=== PATIENT | female | born 1980 | race Caucasian/White ===

== ENCOUNTER 2017-08-07 16:51 | Inpatient (IN) | payer MEDICAID ==
[~2017-08-07] VITALS: Ht 142.2 cm; Wt 64.0 kg
[~2017-08-07 16:51] MED LIST: PREN1TAB17 PO
--- NOTE | 2017-08-07 16:55 | NSTRPT ---
NST Information Datetime Report Generated by CPN: 08/07/2017 16:55 Datetime: 07/30/2017 08:30 NST Information EGA: 34.2 Test Number: 2 Time on Monitor: 07/30/2017 08:39 Time off Monitor: 07/30/2017 09:03 NST Duration (Min): 24 Reason for NST: Low SRINIVAS Test and Monitor Explained: Monitor Explained; Test Explained; Verbalized Understanding Pulse: 74 Resp: 17 SBP: 118 DBP: 55 Test Evaluation NST Interventions: Reposition Patient Patient States Movement: Present Contraction Frequency: none FHR Baseline : 135 Variability: Moderate 6-25bpm Accelerations: 15X15 Decelerations: None FHR Category: Category I NST Results: Reactive Comments: Pt to U/S, LOKESH 11.4cm, cephalic Electronically Signed By E-Signature: with User ID: [id number] Datetime: 07/23/2017 08:36 NST Information EGA: 33.2 NST Duration (Min): 29
--- NOTE | 2017-08-07 18:26 | RADRPT ---
PROCEDURE: US OB. CLINICAL INDICATION: Low LOKESH , pain TECHNIQUE: Transabdominal views of the pelvis are available for review. COMPARISON: No prior studies are available for comparison. FINDINGS: There is a single intrauterine gestation in a vertex position. The heart rate is noted at 131 bpm. The placenta is posterior. The LOKESH measures 7.5 cm. RPTAT: AA IMPRESSION: Slightly decreased LOKESH. .Chavez Hendrix MD, MD Date Time Electronically viewed and signed by .Chavez Hendrix MD, MD on 08/07/2017 18:26 .S/
[2017-08-07 18:52] LABS: ADD UMIC YES; UR ASCORBIC ACID NEGATIVE (NEGATIVE); UR BILIRUBIN (Dip) NEGATIVE (NEGATIVE); UR BLOOD (Dip) 2+ mg/dL (NEGATIVE); UR CLARITY SLIGHTLY CLOUDY (CLEAR); UR COLOR YELLOW (YELLOW); UR GLUCOSE (Dip) NEGATIVE (NEGATIVE); UR KETONES (Dip) NEGATIVE (NEGATIVE); UR LEUKOCYTE ESTERASE (Dip) 2+ Leu/ul (NEGATIVE); UR NITRITE (Dip) NEGATIVE (NEGATIVE); UR RBC 24 /HPF (0-5); UR SPECIFIC GRAVITY (Dip) 1.012 (1.003-1.030); UR SQUAMOUS EPITHELIAL CELL FEW /HPF (FEW); UR TOTAL PROTEIN (Dip) NEGATIVE (NEGATIVE); UR UROBILINOGEN (Dip) NEGATIVE (NEGATIVE)
--- NOTE | 2017-08-07 19:06 | HP ---
Date/Time of Note Date/Time of Note DATE: 08/07/17 TIME: 19:02 OB - History Hx of Present Chief Complaint: leakage of fluid Estimated Due Date: Sep 08, 2017 : 3 Para: 2 Spontaneous : 0 Therapeutic : 0 Care: Good Care Ultrasounds: Normal mid trimester US Obstetrical Complications: None Medical Complications: None Past Family/Social History * Past Medical, Surgical, Family and Obstetric Histories reviewed from chart. GBS Status: Unknown OB Admission Exam Physical Exam HEENT: WNL Heart: Rhythm Normal Lungs: Clear, Equal Abdomen: WNL Extremities: Normal Reflexes: Normal Cervical Dilatation: None Effacement: 25% Station: -2 Membranes: Ruptured Amniotic Fluid: Clear Heart Rate: 130's Accelerations: Accelerations Present Decelerations: No Decelerations Varibility: Moderate OB Assessment/Plan Reason for admission: rupture of membranes Plan: Other Other plan: Im betamethasone IV ampicillin JASON CONDON MD Aug 07, 2017 19:06
[2017-08-07] MEDS ORDERED: LACTATED RINGER'S 1,000 ML IV SCH (19:23)
[2017-08-07] MEDS ORDERED: AMPICILLIN 2 GM/NS (PMX) 100 ML IV ONE (19:30)
[2017-08-07] MEDS ORDERED: ACETAMINOPHEN 325 MG TAB PO PRN (19:30)
[2017-08-07 19:47] VITALS: BP 104/58; PULSE 82; RESP 18
[2017-08-07] MEDS: BETAMET NA PHOS/AC(6 MG/ML) 5ML INJ IM SCH (20:15)
[2017-08-07 20:22] LABS: BASOPHILS % 0.3 % (0.0-2.0); EOSINOPHILS # 0.2 10^3/ul (0.0-0.5); EOSINOPHILS % 1.1 % (0.0-7.0); HEMATOCRIT 34.7 % (37.0-47.0); LYMPHOCYTES # 2.4 10^3/ul (0.8-2.9); LYMPHOCYTES % 15.3 % (15.0-51.0); MEAN CORPUSCULAR HEMOGLOBIN 29.7 pg (29.0-33.0); MEAN CORPUSCULAR HGB CONC 34.6 g/dl (32.0-37.0); MEAN CORPUSCULAR VOLUME 85.9 fl (82.0-101.0); MEAN PLATELET VOLUME 9.8 fl (7.4-10.4); MONOCYTES % 6.4 % (0.0-11.0); NEUTROPHIL # 11.7 10^3/ul (1.6-7.5); NEUTROPHILS % 76.3 % (39.0-77.0); PLATELET COUNT 272 10^3/UL (140-415); RED BLOOD COUNT 4.04 10^6/ul (4.20-5.40); RED CELL DISTRIBUTION WIDTH 13.6 % (11.5-14.5); WHITE BLOOD COUNT 15.4 10^3/ul (4.8-10.8)
[2017-08-07 20:23] VITALS: Ht 142.2 cm; Wt 64.0 kg
[2017-08-07 20:33] LABS: INR 0.93; PARTIAL THROMBOPLASTIN TIME 28.9 Sec (25.0-35.0); PROTIME 12.6 Sec (11.9-14.9)
[2017-08-07] MEDS: DOCUSATE SODIUM 100 MG CAP PO SCH (21:00)
[2017-08-07] MEDS ORDERED: MAGNESIUM SULFATE 20 GM/500 ML 500 ML IV ONE (22:17)
[2017-08-07] MEDS ORDERED: MAGNESIUM SULFATE 4 GM/100 ML 100 ML ONE (22:17)
[2017-08-07] MEDS ORDERED: MAGNESIUM SULFATE 4 GM/100 ML 100 ML IV SCH (22:30)
[2017-08-07] MEDS ORDERED: CA GLUCONATE (GM) 10% 10ML INJ IV PRN (22:30)
[2017-08-07] MEDS: LACTATED RINGER'S 1,000 ML IV SCH (23:13)
[2017-08-07] MEDS: MAGNESIUM SULFATE 20 GM/500 ML 500 ML IV SCH (23:13)
[2017-08-08] MEDS: AMPICILLIN 1 GM/NS (PMX) 50 ML IV SCH ×6 (00:01→20:54)
[2017-08-08] MEDS: LACTATED RINGER'S 1,000 ML IV SCH ×2 (06:48→20:53)
[2017-08-08] MEDS: PRENATAL VITAMIN PO SCH (07:49)
[2017-08-08] MEDS: DOCUSATE SODIUM 100 MG CAP PO SCH (07:49)
[2017-08-08] MEDS: MAGNESIUM SULFATE 20 GM/500 ML 500 ML IV SCH ×2 (09:03→18:12)
--- NOTE | 2017-08-08 16:26 | QN ---
Documentation Comment August 08, 2017 Hospital consult This patient is 37 years old 3 para 2 with estimated date of confinement of September 08, 2017 which makes her 35 weeks and 4 days today. She came yesterday due to apparently premature rupture of membranes around 1530 in the afternoon. Her ROM plus test came back positive Her LOKESH was 7.5. The fetus in breech presentation. She has a history of 2 previous delivery by section also requested to have surgical sterilization. Mag sulfate started for her and was given Betamethasone yesterday And we will give another dose today On examination today she is fairly Stable , Afebrile abdomen is soft no much or contraction heart tone is normal. Laboratory Tests Test 08/07/17 17:00 08/07/17 18:30 08/07/17 20:05 08/08/17 01:07 Urine Color YELLOW Urine Clarity SLIGHTLY CLOUDY Urine pH 6.0 Urine Specific [place] 1.012 Urine Ketones NEGATIVEmg/dL Urine Nitrite NEGATIVEmg/dL Urine Bilirubin NEGATIVEmg/dL Urine Urobilinogen NEGATIVEmg/dL Urine Leukocyte Esterase 2+Nicole/ul Urine Microscopic RBC 24/HPF Urine Microscopic WBC 18/HPF Urine Squamous Epithelial Cells FEW/HPF Urine Hemoglobin 2+mg/dL Urine Glucose NEGATIVEmg/dL Urine Total Protein NEGATIVEmg/dl Membranes Rupture POSITIVE White Blood Count 15.410^3/ul Red Blood Count 4.0410^6/ul Hemoglobin 12.0g/dl Hematocrit 34.7% Mean Corpuscular Volume 85.9fl Mean Corpuscular Hemoglobin 29.7pg Mean Corpuscular Hemoglobin Concent 34.6g/dl Red Cell Distribution Width 13.6% Platelet Count 18474^3/UL Mean Platelet Volume 9.8fl Neutrophils % 76.3% Lymphocytes % 15.3% Monocytes % 6.4% Eosinophils % 1.1% Basophils % 0.3% Nucleated Red Blood Cells % 0.0/100WBC Neutrophils # 11.710^3/ul Lymphocytes # 2.410^3/ul Monocytes # 1.010^3/ul Eosinophils # 0.210^3/ul Basophils # 0.010^3/ul Nucleated Red Blood Cells # 0.010^3/ul Prothrombin Time 12.6Sec Prothrombin Time Ratio 1.0 INR International Normalized Ratio 0.93 Activated Partial Thromboplast Time 28.9Sec Magnesium Level 4.8mg/dl Test 08/08/17 05:16 08/08/17 12:15 Magnesium Level 5.5mg/dl 5.9mg/dl Current Medications Medications (Trade) Dose Ordered Sig/Vero Route PRN Reason Start Time Stop Time Status Last Admin Dose Admin Lactated Ringer's (Lr) 1,000 ml @ 125 mls/hr Q8H IV 08/07/17 19:23 08/08/17 06:47 DC 08/07/17 20:16 Betamethasone Acet/Betameth SodPhos 12 mg 12 mg Q24H IM 08/07/17 19:30 08/08/17 19:31 08/07/17 20:15 Ampicillin 100 ml @ 100 mls/hr ONCE ONCE IV 08/07/17 19:30 08/07/17 20:29 DC 08/07/17 20:15 Ampicillin (Ampicillin 1 Gm/ NS (Pmx)) 50 ml @ 100 mls/hr Q4H IV 08/07/17 23:30 08/08/17 12:06 Prenat Multivit/ [place]/Iron/Folic Ac () 1 tab DAILY PO 08/08/17 09:00 Docusate Sodium (Colace) 100 mg BID PO 08/07/17 21:00 Acetaminophen 650 mg 650 mg Q4H PRN PO PAIN AND OR ELEVATED TEMP 08/07/17 19:30 Lactated Ringer's 1,000 ml @ 75 mls/hr [id number] IV 08/07/17 22:10 08/08/17 06:48 Magnesium Sulfate 100 ml @ 200 mls/hr ONCE IV 08/07/17 22:30 08/07/17 22:59 DC 08/07/17 22:40 Magnesium Sulfate (Magnesium Sulfate 20 Gm/500 ml) 500 ml @ 50 mls/hr Q10H IV 08/07/17 23:00 08/08/17 09:03 Calcium Gluconate 1 gm 1 gm ONCE PRN IV FOR MAGNESIUM TOXICITY 08/07/17 22:30 Magnesium Sulfate 100 ml @ ud STK-MED ONCE .ROUTE 08/07/17 22:17 08/07/17 22:18 DC Magnesium Sulfate (Magnesium Sulfate 20 Gm/500 ml) 500 ml @ ud STK-MED ONCE IV 08/07/17 22:17 08/07/17 22:18 DC As I mentioned her last dose of betamethasone will be given at 1130 tonight I did a nitrogen test mostly from the wetness around the vulva and is again positive She says she is very hungry and due to lack of contraction will give her food to be n.p.o. after midnight To be ready for possible section tomorrow. End of dictation ALEX FAITH MD Aug 08, 2017 16:26
[2017-08-08] MEDS ORDERED: BETAMET NA PHOS/AC(6 MG/ML) 5ML INJ IM SCH (20:50)
[2017-08-09] MEDS: AMPICILLIN 1 GM/NS (PMX) 50 ML IV SCH ×5 (01:21→19:30)
[2017-08-09] MEDS: BETAMET NA PHOS/AC(6 MG/ML) 5ML INJ IM SCH (03:57)
[2017-08-09] MEDS: DOCUSATE SODIUM 100 MG CAP PO SCH ×2 (03:57→09:00)
[2017-08-09] MEDS: MAGNESIUM SULFATE 20 GM/500 ML 500 ML IV SCH ×2 (04:20→12:31)
[2017-08-09] MEDS ORDERED: OXYTOCIN 30 UNITS/LR 500 ML BAG IV ONE (07:00)
[2017-08-09] MEDS: PRENATAL VITAMIN PO SCH (09:00)
[2017-08-09] MEDS: LACTATED RINGER'S 1,000 ML IV SCH (11:55)
[2017-08-09] MEDS ORDERED: CEFAZOLIN 2 GM/50 ML (PMX) 50 ML IVPB ONE ×2 (14:37→15:00)
[2017-08-09] MEDS ORDERED: morphine SULFATE/PF (10 MG/10 ML) INJ ONE (15:35)
[2017-08-09] MEDS ORDERED: PHENYLephrine (100 MCG/ML) 5ML SYG ONE ×5 (15:51→17:09)
[2017-08-09] MEDS ORDERED: FENTAnyl 50 MCG/ML VIAL ONE ×3 (16:19→17:07)
--- NOTE | 2017-08-09 17:32 | QN ---
Documentation Comment Patient is wiht SROM. Patient is s/p a course of betamethasone. Patient is for repeat c/s and BTL. Risks, benefits and alternatives were explained to the patient who stated she understood and gave informed consent for the procedures. JASON CONDON MD Aug 09, 2017 17:32
--- NOTE | 2017-08-09 17:42 | OPPN ---
Date/Time of Note Date/Time of Note DATE: 08/09/17 TIME: 17:36 Operative Report Planned Procedure Procedure date Aug 09, 2017 Procedure(s) Repeat c/s with BTL Lysis of adhesions Performed by Jason Condon MD Client Reporting Associate Dr Maloney Anesthesiologist: LANEY VARGAS Pre-procedure diagnosis 35 weeks and 5 days SROM Previous c/s x2 Voluntary sterilization Anesthesia Type: spinal Post-Procedure Post-procedure diagnosis Same Dense pelvic adhesions Findings 8 and 9 Estimated Blood Loss: 500 - 600 mls (500 ml) Specimen(s) placenta, right and left Fallopian tubes Grafts/Implant(s) none Complication(s) none JASON CONDON MD Aug 09, 2017 17:41
[2017-08-09] MEDS ORDERED: OXYTOCIN 30 UNITS/LR 500 ML IV ONE (17:48)
[2017-08-09] MEDS ORDERED: KETOROLAC 30 MG INJ IV PRN (18:00)
[2017-08-09] MEDS ORDERED: NALOXONE (0.4 MG/ML) INJ IV PRN (18:00)
[2017-08-09] MEDS ORDERED: HYDROmorphONE 0.5 MG/0.5 ML SYG IV PRN ×2 (18:00)
[2017-08-09] MEDS ORDERED: HYDROmorphONE (0.2 MG/ML) 10ML SYG IV PRN ×2 (18:00)
[2017-08-09] MEDS ORDERED: FENTAnyl 50 MCG/ML VIAL IV PRN ×3 (18:00)
[2017-08-09] MEDS ORDERED: OXYTOCIN 30 UNITS/LR 500 ML IV SCH (18:00)
[2017-08-09] MEDS ORDERED: ONDANSETRON 4 MG INJ IV PRN ×2 (18:00)
[2017-08-09] MEDS ORDERED: DIPHENHYDRAMINE 50 MG INJ IV PRN ×2 (18:00)
[2017-08-09] MEDS ORDERED: METOCLOPRAMIDE 10 MG INJ IV PRN (18:00)
--- NOTE | 2017-08-09 18:03 | QN ---
Documentation Comment Patient is off magnesium sulfate and denies feeling any contractions. Afebrile VSS Abdomen soft Strip Category I JASON CONDON MD Aug 09, 2017 18:03
--- NOTE | 2017-08-09 18:04 | DS ---
Date/Time of Note Date/Time of Note DATE: 08/09/17 TIME: 18:03 Obstetrical Discharge Record Final Diagnosis Final Diagnosis: not delivered Other Final Diagnosis Threatened labor Complications Tocolytics: Magnesium Sulfate Rupture of Membranes: No Condition on Discharge Physical Assessment Voiding: Yes Bowel Movement: Yes Calf Tenderness: No Patient Condition: Stable JASON CONDON MD Aug 09, 2017 18:04
--- NOTE | 2017-08-09 19:08 | OPR ---
DATE OF OPERATION: 08/09/2017 PREOPERATIVE DIAGNOSES: at 35 weeks and 5 days with spontaneous rupture of membra lisbet, previous section x2, voluntary sterilization. POSTOPERATIVE DIAGNOSES: at 35 weeks and 5 days with spontaneous rupture of membr anes, previous section x2, voluntary sterilization, and dense pelvic adhesions. OPERATION PERFORMED: Repeat section and bilateral tubal ligation and lysis of adhesions. SURGEON: Jason Matthew MD CARE CENTER MANAGER: Hakan Maloney MD ANESTHESIA: Spinal. ANESTHESIOLOGIST: Дмитрий Gaitan MD. PROCEDURE: The patient was taken to the operating room and placed on the operating table. After alejandra ccessful spinal anesthesia was given, the patient was placed in supine position. The area was prepa red and draped in the usual sterile fashion. Spinal anesthesia was tested and was satisfactory. Us ing a scalpel, Pfannenstiel incision was made about 2 fingerbreadths above the symphysis pubis. The incision was carried to the fascia. The fascia was incised and extended bilaterally with [place] scis sors. Two Kochers were used to separate the fascia from the muscle. The muscle was dissected in mi dline down to peritoneum. The peritoneum was secured with 2 Kellys and incised with Metzenbaum scis sors. Upon entering the peritoneal cavity, there were dense pelvic adhesions involving anterior asp ect of the uterus. Sharp and blunt lysis of adhesions was performed in order to access the lower se gment of the uterus with close attention to the bladder and bowel. Using a scalpel, a small transve rse incision was made on the lower segment of the uterus. Upon entering the uterine cavity, bandage scissors were inserted to extend the incision bilaterally, curved up. Baby was delivered from righ t sacral anterior position after internal version from transverse lie. After suctioning clear of am niotic fluid, the baby was handed off to the neonatology team in attendance. Apgars were 8 and 9. The placenta was delivered without difficulty. The uterus was closed with #1 Monocryl continuous lo cked using 0 chromic and 0 PDS, [id number] were placed on small bleeders. In order to access the fallopian tubes, further lysis of adhesions was performed. Both ovaries and tubes appeared to b e normal. The right fallopian tube was grasped with a [place] clamp. Using 0 plain suture ligature , a 5 cm segment of the right fallopian tube was doubly ligated. Using Metzenbaum scissors, a porti on of the right fallopian tube above the ligated area was excised and sent to pathology. Same proce dure was repeated on the left fallopian tube. After assuring hemostasis, the fascia was closed with #1 Vicryl continuous in 2 segments. The skin was closed with case. ESTIMATED BLOOD LOSS: 500 mL. COUNTS: All counts were correct. Dictated By: JASON MATTHEW MD GD/NTS Conf#: [id number] DID#: [id number] CC: HAKAN MALONEY MD;*EndCC*
[2017-08-09 20:00] VITALS: BP 97/53; PULSE 65; RESP 18
[2017-08-09] MEDS ORDERED: CARBOPROST 250 MCG INJ IM PRN (20:00)
[2017-08-09] MEDS ORDERED: LANOLIN 7 GM TUBE TOP PRN (20:00)
[2017-08-09] MEDS ORDERED: OXYTOCIN 30 UNITS/LR 500 ML IV PRN (20:00)
[2017-08-09] MEDS ORDERED: MISOPROSTOL 200 MCG TAB PR PRN (20:00)
[2017-08-09] MEDS ORDERED: METHYLERGONOVINE 0.2 MG INJ IM PRN (20:00)
[2017-08-09] MEDS: SENNA/DOCUSATE NA (8.6MG/50MG) TAB PO SCH (21:24)
[2017-08-09] MEDS: OXYTOCIN 30 UNITS/LR 500 ML IV SCH (23:58)
[2017-08-10] VITALS: BP 91/53; PULSE 65; RESP 18
[2017-08-10 04:00] VITALS: BP 92/55; PULSE 67; RESP 20
[2017-08-10 06:47] LABS: BASOPHILS % 0.1 % (0.0-2.0); HEMATOCRIT 28.4 % (37.0-47.0); HEMOGLOBIN 9.6 g/dl (12.0-16.0); LYMPHOCYTES # 1.6 10^3/ul (0.8-2.9); LYMPHOCYTES % 12.4 % (15.0-51.0); MEAN CORPUSCULAR HEMOGLOBIN 29.5 pg (29.0-33.0); MEAN CORPUSCULAR HGB CONC 33.8 g/dl (32.0-37.0); MEAN CORPUSCULAR VOLUME 87.4 fl (82.0-101.0); MEAN PLATELET VOLUME 10.3 fl (7.4-10.4); MONOCYTE # 1.4 10^3/ul (0.3-0.9); MONOCYTES % 11.2 % (0.0-11.0); NEUTROPHIL # 9.6 10^3/ul (1.6-7.5); NEUTROPHILS % 75.7 % (39.0-77.0); PLATELET COUNT 221 10^3/UL (140-415); RED BLOOD COUNT 3.25 10^6/ul (4.20-5.40); RED CELL DISTRIBUTION WIDTH 14.3 % (11.5-14.5); WHITE BLOOD COUNT 12.6 10^3/ul (4.8-10.8)
[2017-08-10 08:45] VITALS: BP 119/66; PULSE 64; RESP 18
[2017-08-10] MEDS: SENNA/DOCUSATE NA (8.6MG/50MG) TAB PO SCH ×2 (08:58→21:00)
[2017-08-10] MEDS: KETOROLAC 30 MG INJ IV PRN ×2 (08:58→15:26)
[2017-08-10] MEDS: LACTATED RINGER'S 1,000 ML IV SCH ×3 (08:58→20:35)
--- NOTE | 2017-08-10 18:34 | QN ---
Documentation Comment No complaint Afebrile VSS Abdomen soft ND POD #1 Stable Ambulate Advance diet Fe supplement JASON CONDON MD Aug 10, 2017 18:34
[2017-08-10] MEDS: OXYCODONE/ACETAMINOPHEN (5/325) TAB PO PRN (19:25)
[2017-08-10 20:20] VITALS: BP 97/54; PULSE 81; RESP 18
[2017-08-10] MEDS: OXYTOCIN 30 UNITS/LR 500 ML IV SCH (20:35)
[2017-08-10] MEDS: FERROUS SULFATE (EC) 325 MG TAB PO SCH (21:49)
[2017-08-10] MEDS: IBUPROFEN 800 MG TAB PO SCH (21:49)
[2017-08-11] MEDS: LACTATED RINGER'S 1,000 ML IV SCH (03:51)
[2017-08-11 04:23] VITALS: BP 98/54; PULSE 19; RESP 18
[2017-08-11] MEDS: IBUPROFEN 800 MG TAB PO SCH ×3 (05:18→22:14)
[2017-08-11 07:54] VITALS: BP 107/53; PULSE 65; RESP 16
[2017-08-11] MEDS: SENNA/DOCUSATE NA (8.6MG/50MG) TAB PO SCH ×2 (08:12→22:14)
[2017-08-11] MEDS: FERROUS SULFATE (EC) 325 MG TAB PO SCH ×3 (08:12→22:14)
[2017-08-11] MEDS: OXYCODONE/ACETAMINOPHEN (5/325) TAB PO PRN ×2 (08:13→19:48)
[2017-08-11 15:10] VITALS: BP 122/55; PULSE 68; RESP 18
--- NOTE | 2017-08-11 19:07 | QN ---
Documentation Comment no complaint Afebrile VSS Abdomen soft Stable Continue present care. JASON CONDON MD Aug 11, 2017 19:07
[2017-08-11 20:09] VITALS: BP 112/54; PULSE 68; RESP 18
[2017-08-12] MEDS: LACTATED RINGER'S 1,000 ML IV SCH ×2 (05:08→05:09)
[2017-08-12 05:15] VITALS: BP 105/59; PULSE 63; RESP 18
[2017-08-12] MEDS: IBUPROFEN 800 MG TAB PO SCH ×2 (05:57→13:35)
[2017-08-12 08:43] VITALS: BP 110/57; PULSE 75; RESP 18
[2017-08-12] MEDS: SENNA/DOCUSATE NA (8.6MG/50MG) TAB PO SCH (08:50)
[2017-08-12] MEDS: FERROUS SULFATE (EC) 325 MG TAB PO SCH ×2 (08:50→12:15)
[2017-08-12] MEDS ORDERED: DIPHTH/TET/ACEL PERTUSS (ADULT) 0.5 ML VIAL IM* ONE (09:00)
--- NOTE | 2017-08-12 11:06 | DS ---
Date/Time of Note Date/Time of Note DATE: 08/12/17 TIME: 11:05 Obstetrical Discharge Record Final Diagnosis Final Diagnosis: delivered Vaginal Delivery Obstetrical Delivery: Bilateral Tubal Ligation Section Section: Repeat Complications Tocolytics: Magnesium Sulfate Rupture of Membranes: Yes Gestational Age at Rupture 35 weeks Condition on Discharge Physical Assessment Voiding: Yes Bowel Movement: Yes Breast: Soft, non-tender, Filling Fundus: Firm Abdomen and Incision: Incision intact Calf Tenderness: No Patient Condition: Stable JASON CONDON MD Aug 12, 2017 11:06
[2017-08-12] MEDS: OXYCODONE/ACETAMINOPHEN (5/325) TAB PO PRN (12:40)
== END 2017-08-12 18:04 | disposition home or self-care (01) | DRG 765 ==
LOC: OBT 16:51 → L-D 16:52 → OBT 18:55 → L-D 18:56 → PP1 08-09 20:14
PROVIDERS: ADMIT Obstetrics & Gynecology; ATTEND Obstetrics & Gynecology
PROC: 0UL70ZZ Occlusion of Bilateral Fallopian Tubes, Open Approach (ICD-10-PCS; 2017-08-09)
PROC: 3E033VJ Introduction of Other Hormone into Peripheral Vein, Percutaneous Approach (ICD-10-PCS; 2017-08-09)
PROC: 10D00Z1 Extraction of Products of Conception, Low, Open Approach (ICD-10-PCS; principal; 2017-08-09 16:00)
DX: O34.211 Maternal care for low transverse scar from previous cesarean delivery (principal); O60.14X0 Preterm labor third trimester with preterm delivery third trimester, not applicable or unspecified; K66.0 Peritoneal adhesions (postprocedural) (postinfection); O99.62 Diseases of the digestive system complicating childbirth; Z30.2 Encounter for sterilization; Z37.0 Single live birth; Z3A.35 35 weeks gestation of pregnancy
CPT/HCPCS: 76815; 81001; 83735; 84112; 85025; 85610; 85730; 86592; 86850; 86900; 86901; 87070; 87086; 88302; 88307; 90715; 94760; 99464; G0463; J0290; J0690; J0702; J1885; J2274; J2370; J2590; J3010; J3475; J7120